=== PATIENT | female | born 1955 | race Caucasian/White ===

== ENCOUNTER 2017-09-06 09:42 | Outpatient (CLI) | payer OTHER ==
[2017-09-06 10:55] LABS: eGFR (African) > 60; eGFR (Non-African) > 60
== END 2017-09-06 09:44 ==
LOC: LAB 09:42
PROVIDERS: ATTEND Physician Assistant
DX: B35.1 Tinea unguium (principal); R06.02 Shortness of breath
CPT/HCPCS: 80053; 83880

== ENCOUNTER 2019-01-11 09:40 | Outpatient (CLI) | payer MEDICARE ==
[2018-12-29 04:32] VITALS: BP 106/64
[2019-01-11 10:21] LABS: A1C 5.5 % (<5.7)
[2019-01-11 10:39] LABS: eGFR (Non-African) > 60
[2019-01-11 10:40] LABS: HDL 58 mg/dL (>40)
== END 2019-01-11 09:42 ==
LOC: LAB 09:40
PROVIDERS: ATTEND Family Medicine
DX: R94.5 Abnormal results of liver function studies (principal); I10 Essential (primary) hypertension; R73.9 Hyperglycemia, unspecified
CPT/HCPCS: 36415; 80053; 80061; 83036